=== PATIENT | male | born 1950 | race Caucasian/White ===

== ENCOUNTER 2019-12-23 22:06 | Inpatient (IN) | payer MEDICARE, MEDICAID ==
[~2019-12-23] VITALS: Ht 167.6 cm; Wt 76.4 kg
[2019-12-23 23:37] LABS: BASOPHILS % 0.4 % (0.0-2.0); CHLORIDE 97 mEq/L (98-107); EOSINOPHILS % 3.4 % (0.0-5.0); HEMATOCRIT. 40.2 % (42.0-52.0); HEMOGLOBIN. 13.4 g/dL (14.0-18.0); LYMPHOCYTES % 33.2 % (20.0-50.0); MEAN CORPUSCULAR HEMOGLOBIN 28.8 pg (28.0-32.0); MEAN CORPUSCULAR VOLUME 86.4 fL (80.0-94.0); MEAN PLATELET VOLUME 9.6 fl (7.4-10.4); MONOCYTES % 10.6 % (2.0-8.0); NEUTROPHILS % 52.4 % (40.0-76.0); PLATELET 182 x1000/uL (130-400); RED BLOOD CELL COUNT 4.65 mill/uL (4.7-6.1)
[2019-12-23 23:39] LABS: CLARITY URINE CLEAR (CLEAR); COLOR URINE YELLOW (YELLOW); KETONES URINE NEGATIVE (NEGATIVE); LEUKOCYTE ESTERASE URINE NEGATIVE (NEGATIVE); NITRITE URINE NEGATIVE (NEGATIVE); OCCULT BLOOD URINE TRACE (NEGATIVE); PROTEIN URINE NEGATIVE (NEGATIVE); SPECIFIC GRAVITY URINE 1.036 (1.005-1.030); UROBILINOGEN URINE 0.2 E.U./dL (0.2-1.0)
[2019-12-24] VITALS (9 sets, daily range): BP systolic 114–165; BP diastolic 70–93
[2019-12-24] MEDS ORDERED: ASPIRIN 81MG TABLET PO ONE (00:30)
[2019-12-24] MEDS ORDERED: NITROGLYCERIN OINT 1GM/INCH UDPKT TD ONE (00:30)
[2019-12-24] MEDS ORDERED: CLONIDINE 0.1MG TABLET PO PRN (09:30)
[2019-12-24] MEDS ORDERED: MORPHINE SULFATE 2 MG/ML CPJ (NOT FOR IM USE) IV PRN (09:30)
[2019-12-24] MEDS ORDERED: DIPHENHYDRAMINE 50MG/ML VIAL IV PRN (09:30)
[2019-12-24] MEDS ORDERED: IPRATROPIUM/ALBUTEROL 0.5-3(2.5)MG/3ML NEB HHN PRN (09:30)
[2019-12-24] MEDS ORDERED: ACETAMINOPHEN 325MG TABLET PO PRN (09:30)
[2019-12-24] MEDS ORDERED: INSULIN LISPRO 100 UNITS/ML SUBCUT SCH (09:30)
[2019-12-24] MEDS ORDERED: ONDANSETRON HCL 4MG/2ML INJ IV PRN (09:30)
[2019-12-24] MEDS ORDERED: INFLUENZA VACCINE 05/PF 0.5 ML VIAL IM ONE (10:00)
[2019-12-24] MEDS ORDERED: METF-414 MT (10:03)
[2019-12-24] MEDS ORDERED: CARV6.2548 MT (10:04)
[2019-12-24] MEDS ORDERED: ASPI-1497 MT (10:04)
[2019-12-24] MEDS ORDERED: ATOR-2 MT (10:06)
[2019-12-24] MEDS: ENOXAPARIN 40MG/0.4ML SYR SUBCUT SCH (10:40)
[2019-12-24] MEDS ORDERED: DEXTROSE 50% WATER 50ML SYRINGE IV PRN (15:30)
[2019-12-24 16:35] LABS: BASOPHILS % 0.2 % (0.0-2.0); EOSINOPHILS % 1.7 % (0.0-5.0); HEMATOCRIT. 41.9 % (42.0-52.0); HEMOGLOBIN. 13.6 g/dL (14.0-18.0); LYMPHOCYTES % 20.5 % (20.0-50.0); MEAN CORPUSCULAR HEMOGLOBIN 28.2 pg (28.0-32.0); MEAN CORPUSCULAR VOLUME 86.5 fL (80.0-94.0); MEAN PLATELET VOLUME 9.1 fl (7.4-10.4); MONOCYTES % 8.9 % (2.0-8.0); NEUTROPHILS % 68.7 % (40.0-76.0); PLATELET 184 x1000/uL (130-400); RED BLOOD CELL COUNT 4.84 mill/uL (4.7-6.1)
[2019-12-24 17:16] LABS: CHLORIDE 100 mEq/L (98-107)
[2019-12-24 17:22] LABS: PHOSPHORUS 3.6 mg/dL (2.5-4.9)
[2019-12-24] MEDS: BLOOD SUGAR DIAGNOSTIC STRIP TEST SCH ×3 (18:24→20:34)
[2019-12-24] MEDS: ASPIRIN 81MG TABLET PO SCH (18:32)
[2019-12-24] MEDS: INSULIN LISPRO 100 UNITS/ML SUBCUT SCH ×2 (18:32→20:34)
[2019-12-24] MEDS ORDERED: FAMOTIDINE 20MG TABLET PO SCH (21:00)
[2019-12-24 21:44] LABS: CREATINE KINASE 207 IU/L (39-308)
[2019-12-24 21:45] LABS: CREATINE KINASE MB FRACTION 5.4 ng/mL (0.5-3.6)
[2019-12-24] MEDS ORDERED: IOHEXOL-350 100 ML BOTTLE ONE (23:09)
[2019-12-25] VITALS: BP 111/71
[2019-12-25 03:41] VITALS: BP 110/68
[2019-12-25 05:32] LABS: CHLORIDE 103 mEq/L (98-107)
[2019-12-25 05:39] LABS: LDL CHOLESTEROL 137 mg/dL (5-100)
[2019-12-25 05:40] LABS: HDL CHOLESTEROL 38 mg/dL (40-59)
[2019-12-25 06:15] LABS: BASOPHILS % 0.4 % (0.0-2.0); EOSINOPHILS % 2.6 % (0.0-5.0); HEMATOCRIT. 42.8 % (42.0-52.0); HEMOGLOBIN. 14.1 g/dL (14.0-18.0); LYMPHOCYTES % 33.4 % (20.0-50.0); MEAN CORPUSCULAR HEMOGLOBIN 28.4 pg (28.0-32.0); MEAN CORPUSCULAR VOLUME 86.1 fL (80.0-94.0); MONOCYTES % 9.8 % (2.0-8.0); NEUTROPHILS % 53.8 % (40.0-76.0); PLATELET 185 x1000/uL (130-400); RED BLOOD CELL COUNT 4.97 mill/uL (4.7-6.1); RED CELL DISTRIBUTION WIDTH 13.9 % (11.6-14.6)
[2019-12-25] MEDS: BLOOD SUGAR DIAGNOSTIC STRIP TEST SCH ×3 (06:39→17:34)
[2019-12-25 08:00] VITALS: BP 129/82
[2019-12-25] MEDS: INSULIN LISPRO 100 UNITS/ML SUBCUT SCH ×3 (08:42→18:00)
[2019-12-25] MEDS ORDERED: CARVEDILOL 6.25 MG TABLET PO SCH ×2 (11:00→21:00)
[2019-12-25] MEDS ORDERED: REGADENOSON 0.4 MG/5 ML IV ONE ×2 (11:16→13:00)
[2019-12-25] MEDS ORDERED: INSULIN GLARGINE UD 100 UNITS/ML SYR SUBCUT SCH ×2 (11:30→22:00)
[2019-12-25 12:00] VITALS: BP 139/75
[2019-12-25] MEDS: ENOXAPARIN 40MG/0.4ML SYR SUBCUT SCH (13:31)
[2019-12-25] MEDS: ASPIRIN 81MG TABLET PO SCH (13:32)
[2019-12-25] MEDS: METFORMIN HCL 500MG TABLET PO SCH ×2 (13:33→17:47)
[2019-12-25] MEDS ORDERED: LACTULOSE 20G/30ML UDC PO SCH (14:00)
[2019-12-25] MEDS ORDERED: PANTOPRAZOLE SODIUM 40 MG/VIAL IV SCH (14:00)
[2019-12-25] MEDS ORDERED: ASPI-1158 MT (14:08)
[2019-12-25] MEDS ORDERED: METF-414 MT (14:08)
[2019-12-25] MEDS ORDERED: INSU100I28 SQ (14:08)
[2019-12-25] MEDS ORDERED: BLOO-1465 MT (14:08)
[2019-12-25] MEDS ORDERED: LIP40 MT (14:08)
[2019-12-25] MEDS ORDERED: COR6 MT (14:08)
[2019-12-25] MEDS ORDERED: LANC1COM2 MC (14:08)
[2019-12-25] MEDS ORDERED: PROT40 MT (14:09)
[2019-12-25 16:00] VITALS: BP 134/74
[2019-12-25 18:16] VITALS: BP 126/80
[2019-12-25] MEDS ORDERED: ATORVASTATIN CALCIUM 40MG TABLET PO SCH ×2 (21:00)
== END 2019-12-25 18:45 | disposition home or self-care (01) | DRG 205 ==
LOC: ER 22:06 → 5EST 12-24 02:18 → CANRESERV 12-24 08:01 → ENRESERV 12-24 08:01
PROVIDERS: ADMIT Internal Medicine; ATTEND Internal Medicine
DX: M94.0 Chondrocostal junction syndrome [Tietze] (principal); I50.33 Acute on chronic diastolic (congestive) heart failure; I25.110 Atherosclerotic heart disease of native coronary artery with unstable angina pectoris; I16.1 Hypertensive emergency; E87.1 Hypo-osmolality and hyponatremia; D64.9 Anemia, unspecified; E11.65 Type 2 diabetes mellitus with hyperglycemia; E66.9 Obesity, unspecified; E78.00 Pure hypercholesterolemia, unspecified; E78.5 Hyperlipidemia, unspecified; K21.9 Gastro-esophageal reflux disease without esophagitis; K20.90 Esophagitis, unspecified without bleeding; K59.00 Constipation, unspecified; Z79.4 Long term (current) use of insulin; Z79.899 Other long term (current) drug therapy; Z95.5 Presence of coronary angioplasty implant and graft; Z68.27 Body mass index [BMI] 27.0-27.9, adult; I11.0 Hypertensive heart disease with heart failure; I16.0 Hypertensive urgency
CPT/HCPCS: 36415; 71045; 71275; 78452; 80053; 80061; 81003; 82550; 82553; 82962; 83036; 83735; 83880; 84100; 84443; 84484; 85025; 90686; 93005; 93306; 93970; 99285; A9500; C9113; J1650; J1815; J2270; J2785; Q9967

== ENCOUNTER 2020-03-10 21:46 | Emergency (ER) | payer MEDICARE, MEDICAID, OTHER ==
[~2020-03-10] VITALS: Ht 167.6 cm; Wt 69.0 kg
[~2020-03-10 21:46] MED LIST: ASPI-1406 MT; ASPI-1497 MT; ATOR-2 MT; BLOO-1465 MT; CARV6.2548 MT; COR6 MT; INSU100I28 SQ; LANC1COM2 MC; LIP40 MT; METF-414 MT; PROT40 MT
[2020-03-10] MEDS ORDERED: ACETAMINOPHEN 325MG TABLET PO ONE (22:15)
[2020-03-10] MEDS ORDERED: IBUPROFEN 400MG TABLET PO ONE (22:30)
[2020-03-10] MEDS ORDERED: GUAIFENESIN/CODEINE 100-10MG/5ML UDC PO ONE (22:45)
[2020-03-10 22:52] LABS: HEMATOCRIT. 38.7 % (42.0-52.0); MEAN CORPUSCULAR HEMOGLOBIN 28.9 pg (28.0-32.0); MEAN PLATELET VOLUME 7.6 fl (7.4-10.4); PLATELET 195 x1000/uL (130-400); RED BLOOD CELL COUNT 4.51 mill/uL (4.7-6.1); RED CELL DISTRIBUTION WIDTH 15.6 % (11.6-14.6)
[2020-03-10 23:00] LABS: CHLORIDE 108 mEq/L (98-107)
[2020-03-10 23:05] VITALS: BP 128/84
[2020-03-10 23:14] LABS: PLATELET ESTIMATE NORMAL
[2020-03-11 00:32] LABS: CLARITY URINE CLEAR (CLEAR); COLOR URINE YELLOW (YELLOW); KETONES URINE NEGATIVE (NEGATIVE); LEUKOCYTE ESTERASE URINE NEGATIVE (NEGATIVE); NITRITE URINE NEGATIVE (NEGATIVE); OCCULT BLOOD URINE 1+ (NEGATIVE); PROTEIN URINE NEGATIVE (NEGATIVE); SPECIFIC GRAVITY URINE 1.045 (1.005-1.030); UROBILINOGEN URINE 0.2 E.U./dL (0.2-1.0)
== END 2020-03-11 01:35 | disposition home or self-care (01) ==
LOC: ER 21:46
DX: U07.1 COVID-19 (principal); J12.82 Pneumonia due to coronavirus disease 2019; I10 Essential (primary) hypertension; E11.9 Type 2 diabetes mellitus without complications; Z79.899 Other long term (current) drug therapy; Z79.4 Long term (current) use of insulin; Z79.82 Long term (current) use of aspirin
CPT/HCPCS: 36415; 71045; 80053; 81003; 85025; 93005; 99285